=== PATIENT | female | born 1960 | race Caucasian/White ===

== ENCOUNTER 2017-05-30 09:04 | Emergency (ER) | payer BC, OTHER ==
[~2017-05-30] VITALS: Ht 172.7 cm; Wt 56.0 kg
[~2017-05-30 09:04] MED LIST: LEVA750T PO
[2017-05-30 09:06] VITALS: BP 197/97; PULSE 74; RESP 18; TEMP 97.6; O2SAT 98
[2017-05-30] MEDS ORDERED: CEPH-460 PO (09:22)
--- NOTE | 2017-05-30 09:24 | PD ---
HPI Chief Complaint: ENT Complaint Time Seen by Provider: 09:12 Travel History International Travel<30 days: No Contact w/Intl Traveler<30days: No Traveled to known affect area: No History of Present Illness HPI Patient presents with complaints of 3 days of sinus pain and pressure. Reports one episode of vomiting. Reports general malaise. Denies loose stools or fever. No new rashes. No tobacco exposure. PFSH Past Medical History Asthma: No Autoimmune Disease: No COPD: No Diminished Hearing: No Migraines: Yes ?: Not Menopausal: Yes Past Surgical History Cardiac Surgery: Yes (ABLATION HEART 2000) Other Surgery: Yes (breast augmentation) Social History Alcohol Use: No Tobacco Use: No Substance Use: No Allergies-Medications (Allergen,Severity, Reaction): Coded Allergies: Azithromycin (Verified Allergy, Severe, Psychosis, 05/30/17) Cipro (Verified Allergy, Intermediate, VOMITING/HEADACHE, 05/30/17) Uncoded Allergies: UNKNOWN ANTIBIOTIC (Adverse Reaction, Intermediate, HEAD PRESSURE, 10/28/12 ) UNKNOWN PAIN MEDICATION (Adverse Reaction, Intermediate, HEAD PRESSURE, 28/10) Reported Meds & Prescriptions Reported Meds & Active Scripts Active Levaquin 750 Mg Tab (Levofloxacin) 750 Mg Tab 750 Mg PO DAILY Review of Systems HENT: Positive: Congestion Physical Exam Narrative GENERAL: Well-nourished, well-developed patient. SKIN: Focused skin assessment warm/dry. HEAD: Normocephalic. EYES: No scleral icterus. No injection or drainage. Naris erythematous and boggy with tenderness over bilateral maxillary sinuses NECK: Supple, trachea midline. No JVD or lymphadenopathy. CARDIOVASCULAR: Regular rate and rhythm without murmurs, gallops, or rubs. RESPIRATORY: Breath sounds equal bilaterally. No accessory muscle use. GASTROINTESTINAL: Abdomen soft, non-tender, nondistended. MUSCULOSKELETAL: No cyanosis, or edema. BACK: Nontender without obvious deformity. No CVA tenderness. Data Data Last Documented VS Vital Signs Date Time Temp Pulse Resp B/P Pulse Ox O2 Delivery O2 Flow Rate FiO2 05/30/17 09:06 97.6 74 18 197/97 98 MDM Medical Decision Making Medical Screen Exam Complete: Yes Emergency Medical Condition: Yes Differential Diagnosis Influenza, sinus infection, pharyngitis Narrative Course Assessment and plan discussed with patient at bedside. Patient denies allergy to azithromycin Cipro and unknown antibiotic. Thinks she is allergic to hydrocodone. Diagnosis Primary Impression: Sinusitis Qualified Code: J01.00 - Acute maxillary sinusitis, recurrence not specified Patient Instructions: General Instructions Additional Instructions: Rest fluids and Motrin, consider vitamin C and zinc to boost immune system, encouraged nasal irrigation Med/Other Pt SpecificInfo: Prescription(s) given Scripts Cephalexin (Keflex)500 Mg Upm959 Mg PO Q8H 7 Days Ref 0 Prov:López Denney MD 05/30/17 Disposition: 01 DISCHARGE HOME Condition: Good López Denney MD May 30, 2017 09:24
== END 2017-05-30 09:36 | disposition home or self-care (01) ==
LOC: PHEFT 09:04
DX: J01.00 Acute maxillary sinusitis, unspecified (principal)
CPT/HCPCS: 99283

== ENCOUNTER 2017-06-25 08:20 | Emergency (ER) | payer BC ==
[~2017-06-25] VITALS: Ht 175.3 cm; Wt 56.0 kg
[~2017-06-25 08:20] MED LIST changes: +CEPH-460 PO; -LEVA750T PO
[2017-06-25 08:25] VITALS: BP 169/77; PULSE 67; RESP 16; TEMP 97.7; O2SAT 99
[2017-06-25] MEDS ORDERED: SALI0.653 EACH NARE (09:24)
--- NOTE | 2017-06-25 09:24 | PD ---
HPI Chief Complaint: cephalgia, rhinorrhea Time Seen by Provider: 09:12 Travel History International Travel<30 days: No Contact w/Intl Traveler<30days: No History of Present Illness HPI 57-year-old female has had 3 days of generalized muscle aches and pains. Rhinorrhea reported. Postnasal drip reported. Sore throat reported. Right otalgia reported. She also has frontal maxillary sinus pain and pain in between and behind the eyes. There is a headache towards the vertex of the scalp as well. No neck stiffness. A Neti pot at home has conferred minimal benefit. PFSH Past Medical History Asthma: No Autoimmune Disease: No COPD: No Diminished Hearing: No Migraines: Yes Menopausal: Yes Past Surgical History Cardiac Surgery: Yes (ABLATION HEART 2000) Other Surgery: Yes (breast augmentation) Social History Alcohol Use: No Tobacco Use: No Substance Use: No Allergies-Medications (Allergen,Severity, Reaction): Coded Allergies: azithromycin (Unverified Allergy, Severe, Psychosis, 06/15/17) ciprofloxacin (Unverified Allergy, Intermediate, VOMITING/HEADACHE, ) Uncoded Allergies: UNKNOWN ANTIBIOTIC (Adverse Reaction, Intermediate, HEAD PRESSURE, 10/28/12 ) UNKNOWN PAIN MEDICATION (Adverse Reaction, Intermediate, HEAD PRESSURE, 28/10) Reported Meds & Prescriptions Reported Meds & Active Scripts Active Saline Nasal [place] (Sodium Chloride) 0.65% [place] 2 [place] EACH NARE DIRECTED PRN Keflex (Cephalexin) 500 Mg Cap 500 Mg PO Q8H 7 Days Review of Systems Except as stated in HPI: all other systems reviewed are Neg Physical Exam Narrative GENERAL: 57 yo F, WNWD, NAD SKIN: Warm and dry. HEAD: Atraumatic. Normocephalic. EYES: Pupils equal and round. No scleral icterus. No injection or drainage. ENT: No nasal bleeding or discharge. Mucous membranes pink and moist. TM pink/ clear visualization bony landmarks. No mastoid TTP either side. No significant TTP overlying facial sinus distributions. NECK: Trachea midline. No JVD. CARDIOVASCULAR: Regular rate and rhythm. RESPIRATORY: No accessory muscle use. Clear to auscultation. Breath sounds equal bilaterally. GASTROINTESTINAL: Abdomen soft, non-tender, nondistended. Hepatic and splenic margins not palpable. MUSCULOSKELETAL: Extremities without clubbing, cyanosis, or edema. No obvious deformities. NEUROLOGICAL: Awake and alert. No obvious cranial nerve deficits. Motor grossly within normal limits. Five out of 5 muscle strength in the arms and legs. Normal speech. PSYCHIATRIC: Appropriate mood and affect; insight and judgment normal. Data Data Last Documented VS Vital Signs Date Time Temp Pulse Resp B/P (MAP) Pulse Ox O2 Delivery O2 Flow Rate FiO2 06/25/17 08:25 97.7 67 16 169/77 (107) 99 Room Air VS reviewed Orders Orders Dexamethasone Inj (Decadron Inj) (06/25/17 09:30) Ketorolac Inj (Toradol Inj) (06/25/17 09:30) Ecg Monitoring (06/25/17:25) Iv Access Insert/Monitor (06/25/17:25) Oximetry (06/25/17:25) Sodium Chloride 0.9% Flush (Ns Flush) (06/25/17 09:30) Acetaminophen (Tylenol) (06/25/17 09:30) Prochlorperazine Inj (Compazine Inj) (06/25/17 09:30) Diphenhydramine Inj (Benadryl Inj) (06/25/17 09:30) Sodium Chlor 0.9% 1000 Ml Inj (Ns 1000 M (06/25/17 09:25) MDM Medical Decision Making Medical Screen Exam Complete: Yes Emergency Medical Condition: Yes Medical Record Reviewed: Yes Differential Diagnosis pharyngitis, PNA, migraine, sinusitis, cavernous sinus thrombosis, meningitis, subarachnoid hemorrhage, URI Narrative Course Unfortunately the ENT exam is essentially unremarkable. The patient's complaints over the course of the interview seemed to return again began to the headache. Overall aneurysm, intracranial bleed or thrombotic event is considered unlikely. Abortive therapy for headache. Continue Neti pot. Decadron here. Diagnosis Primary Impression: Sinusitis Qualified Codes: J32.9 - Chronic sinusitis, unspecified Additional Impressions: Headache Qualified Codes: R51 - Headache Rhinorrhea Referrals: Primary Care Physician 2 days Additional Instructions: You have a choice when it comes to health care, and we are glad that you chose [facility]. Hopefully, we have met your expectations on today's visit. You are welcome to return to [facility] at any time, as we are committed to meeting the health care needs of our community. Med/Other Pt SpecificInfo: Prescription(s) given Scripts Saline Nasal [place] (Saline Nasal [place]) 0.65% [place] 2 SPRAY EACH NARE DIRECTED Y for NASAL CONGESTION, #1 BOTTLE 0 Refills Prov: Dorian Torres MD 06/25/17 Disposition: 01 DISCHARGE HOME Condition: Stable Dorian Torres MD Jun 25, 2017 09:24
[2017-06-25] MEDS ORDERED: SODIUM CHLOR 0.9% 1000 ML INJ 1,000 ML IV ONE (09:25)
[2017-06-25] MEDS ORDERED: PROCHLORPERAZINE INJ 10 MG/2 ML VIAL IVP ONE (09:30)
[2017-06-25] MEDS ORDERED: SODIUM CHLORIDE 0.9% FLUSH 10 ML FLUSH IVF PRN (09:30)
[2017-06-25] MEDS ORDERED: KETOROLAC TROMETHAMINE 60 MG/2 ML (IM) VIAL IM ONE (09:30)
[2017-06-25] MEDS ORDERED: diphenhydrAMINE HCL 50 MG/ML VIAL IVP ONE (09:30)
[2017-06-25] MEDS ORDERED: DEXAMETHASONE SOD PHOS 4 MG/ML VIAL IM ONE (09:30)
[2017-06-25] MEDS ORDERED: ACETAMINOPHEN 325 MG TAB PO ONE (09:30)
[2017-06-25 10:23] VITALS: O2SAT 97
[2017-06-25 11:31] VITALS: BP 134/86
== END 2017-06-25 11:33 | disposition home or self-care (01) ==
LOC: PHED 08:20
DX: J32.9 Chronic sinusitis, unspecified (principal); R51 Headache; J34.89 Other specified disorders of nose and nasal sinuses
CPT/HCPCS: 96361; 96374; 96375; 99284; J0780; J1200; J7030